=== PATIENT | female | born 1995 | race Hispanic/Latino ===

== ENCOUNTER 2018-07-26 01:26 | Emergency (ER) | payer OTHER ==
[2018-07-26 01:48] VITALS: RESP 18
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
[2018-07-26 05:32] VITALS: BP 134/75; PULSE 71; TEMP 98.3; O2SAT 99
== END 2018-07-26 05:15 | disposition home or self-care (01) ==
LOC: H.ER 01:26
DX: S09.90XA Unspecified injury of head, initial encounter (principal); W03.XXXA Other fall on same level due to collision with another person, initial encounter; Y92.511 Restaurant or cafe as the place of occurrence of the external cause